=== PATIENT | male | born 2000 | race Caucasian/White ===

== ENCOUNTER 2023-04-28 09:43 | Emergency (ER) | payer BC, SELFPAY ==
[2023-04-28 09:45] VITALS: BP 146/101; PULSE 89; RESP 18; TEMP 36.2; O2SAT 100; BMI 23.3
[2023-04-28 09:52] VITALS: O2SAT 98
[2023-04-28] MEDS: Lidocaine 1% (20 ml mdv) 20 ML Vial INFILT (10:12)
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
[2023-04-28 10:59] VITALS: BP 128/77; PULSE 62; RESP 15; TEMP 36.5; O2SAT 100
== END 2023-04-28 11:01 | disposition home or self-care (01) ==
PROVIDERS: Emergency Provider Emergency Medicine; Visit Provider Emergency Medicine
DX: S01.111A Laceration without foreign body of right eyelid and periocular area, initial encounter (principal); V43.52XA Car driver injured in collision with other type car in traffic accident, initial encounter
CPT/HCPCS: 12013; 99283